=== PATIENT | female | born 1990 | race Caucasian/White ===

== ENCOUNTER 2019-01-15 18:10 | Emergency (ER) | payer SELFPAY ==
[~2019-01-15] VITALS: Ht 160 cm; Wt 77.3 kg
[2019-01-15 18:39] VITALS: BP 144/105
== END 2019-01-15 21:09 | disposition left against medical advice (07) ==
LOC: EMS 18:11
DX: R50.9 Fever, unspecified (principal); Z53.21 Procedure and treatment not carried out due to patient leaving prior to being seen by health care provider